=== PATIENT | female | born 1940 ===

== ENCOUNTER 2019-06-05 13:33 | Emergency (ER) | payer OTHER ==
--- OUTSIDE RECORDS SUMMARY | 2019-06-05 13:36 | XMS REPORT ---
:1940 Author Organization eClinicalWorks Care Team Providers Name Role Phone URIAH SABRINAHENRIETTA Provider Role Unavailable Allergies, Adverse Reactions, Alerts Substance Reaction Event Type sulfa drugs Info Not Available Non Drug Allergy Sulfa Sulfa Non Drug Allergy Encounters Encounter Location Date abd pain [facility] January 20, 2014 Unknown [facility] February 17, 2014 diverticulitis [facility] March 02, 2016 Problems Problem Type Condition ICD-9 Code Onset Dates Condition Status Problem Hx of polyp V12.72 Active Problem ABDMNAL PAIN EPIGASTRIC 789.06 Active Problem Family Hx colon ca V16.0 Active Assessment Constipation K59.00 Active Problem GERD 530.81 Active Assessment Dysphagia R13.10 Active Medications Medication Code System Code Instructions Start Date End Date Status Dosage Perdiem MULTUM 90583 Active Unknown Overnight Effexor XR MULTUM 00033 75 mg orally once Active 1 cap(s) a day AZO Urinary MULTUM 943955 Active Unknown Pain Relief Laxative Unknown 0 Active Unknown Social History Social History Element Qualifiers Date Reported Illegal/Recreational Drugs no. March 02, 2016 Alcohol no. March 02, 2016 Smoking . Status Never Smoker March 02, 2016 Family history Qualifier Description Comment Date Reported Maternal Grand Mother Comment not available March 02, 2016 Paternal Grand Mother Comment not available March 02, 2016 Siblings Comment not available March 02, 2016 Maternal Grand Father Comment not available March 02, 2016 Children Comment not available March 02, 2016 Father bowel cancer March 02, 2016 Paternal Grand Father Comment not available March 02, 2016 Mother cervical cancer March 02, 2016 Other Family: Comment not available March 02, 2016 Vital Signs Date/Time: March 02, 2016 Blood Pressure Systolic 117 mm Hg Weight 165 lbs Blood Pressure Diastolic 85 mm Hg Summary Purpose eClinicalWorks Submission
--- OUTSIDE RECORDS SUMMARY | 2019-06-05 13:36 | XMS REPORT ---
:1940 Author Organization eClinicalWorks Care Team Providers Name Role Phone URIAHJACE Provider Role Unavailable Encounters Encounter Location Date Unknown [facility] March 17, 2016 Unknown [facility] March 21, 2016 Unknown [facility] March 21, 2016 abd pain [facility] January 20, 2014 Unknown [facility] February 17, 2014 diverticulitis [facility] March 02, 2016 Problems Problem Type Condition ICD-9 Code Onset Dates Condition Status Problem Hx of polyp V12.72 Active Problem ABDMNAL PAIN EPIGASTRIC 789.06 Active Problem Family Hx colon ca V16.0 Active Problem GERD 530.81 Active Social History Social History Element Qualifiers Date Reported Illegal/Recreational Drugs no. March 02, 2016 Alcohol no. March 02, 2016 Smoking . Status Never Smoker March 02, 2016 Summary Purpose eClinicalWorks Submission
--- OUTSIDE RECORDS SUMMARY | 2019-06-05 13:36 | XMS REPORT ---
:1940 Author Organization eClinicalWorks Care Team Providers Name Role Phone Nadia LOCKHART Provider Role Unavailable Allergies, Adverse Reactions, Alerts Substance Reaction Event Type sulfa drugs Info Not Available Non Drug Allergy Sulfa Sulfa Non Drug Allergy Encounters Encounter Location Date abd pain [facility] January 20, 2014 Unknown [facility] February 17, 2014 Problems Problem Type Condition ICD-9 Code Onset Dates Condition Status Assessment GERD 530.81 Active Problem Hx of polyp V12.72 Active Problem ABDMNAL PAIN EPIGASTRIC 789.06 Active Problem Family Hx colon ca V16.0 Active Assessment Hx of polyp V12.72 Active Assessment ABDMNAL PAIN EPIGASTRIC 789.06 Active Problem GERD 530.81 Active Assessment Family Hx colon ca V16.0 Active Medications Medication Code System Code Instructions Start Date End Date Status Dosage Trilyte MULTUM 25059 - orally every January 20, Active 240 mL minutes 2013 venlafaxine MULTUM 05373 75 mg orally 2 Active 1 tab(s) times a day Detrol LA MULTUM 59047 4 mg orally once a Active 1 cap(s) day omeprazole MULTUM 62162 40 mg orally once a February 17, Active 1 cap(s) day 2013 Social History Social History Element Qualifiers Date Reported Illegal/Recreational Drugs no. February 17, 2014 Alcohol no. February 17, 2014 Smoking . Status Never Smoker February 17, 2014 Family history Qualifier Description Comment Date Reported Mother cervical cancer February 17, 2014 Father bowel cancer February 17, 2014 Vital Signs Date/Time: February 17, 2014 Blood Pressure Systolic 109 mm Hg Weight 161 lbs Blood Pressure Diastolic 79 mm Hg Summary Purpose eClinicalWorks Submission
--- OUTSIDE RECORDS SUMMARY | 2019-06-05 13:36 | XMS REPORT ---
:1940 Author Organization eClinicalWorks Care Team Providers Name Role Phone JACE KRUSE Provider Role Unavailable Encounters Encounter Location Date Unknown [facility] March 17, 2016 abd pain [facility] January 20, 2014 Unknown [facility] February 17, 2014 diverticulitis [facility] March 02, 2016 Problems Problem Type Condition ICD-9 Code Onset Dates Condition Status Problem Hx of polyp V12.72 Active Problem ABDMNAL PAIN EPIGASTRIC 789.06 Active Problem Family Hx colon ca V16.0 Active Problem GERD 530.81 Active Medications Medication Code System Code Instructions Start Date End Date Status Dosage Amitiza MULTUM 12292 24 mcg orally 2 March 17, 2016 Active 1 cap(s) times a day Social History Social History Element Qualifiers Date Reported Illegal/Recreational Drugs no. March 02, 2016 Alcohol no. March 02, 2016 Smoking . Status Never Smoker March 02, 2016 Summary Purpose eClinicalWorks Submission
--- OUTSIDE RECORDS SUMMARY | 2019-06-05 13:36 | XMS REPORT ---
[...] Instructions Start Date End Date Status Dosage Linzess MULTUM 230443 145 mcg orally once March 21 1 cap(s) a day 2015 Social History Social History Element Qualifiers Date Reported Illegal/Recreational Drugs no. March 02, 2016 Alcohol no. March 02, 2016 Smoking . Status Never Smoker March 02, 2016 Summary Purpose eClinicalWorks Submission
--- OUTSIDE RECORDS SUMMARY | 2019-06-05 13:36 | XMS REPORT ---
:1940 Author Organization eClinicalWorks Care Team Providers Name Role Phone Nadia LOCKHART Provider Role Unavailable Allergies, Adverse Reactions, Alerts Substance Reaction Event Type sulfa drugs Info Not Available Non Drug Allergy Encounters Encounter Location Date abd pain [facility] January 20, 2014 Problems Problem Type Condition ICD-9 Code [...] Date End Date Status Dosage Trilyte MULTUM 69565 - orally every 15 January 20, Active 240 mL minutes 2013 Detrol LA MULTUM 49451 4 mg orally once a Active 1 cap(s) day venlafaxine MULTUM 89514 75 mg orally 2 Active 1 tab(s) times a day Social History Social History Element Qualifiers Date Reported Illegal/Recreational Drugs no. January 20, 2014 Alcohol no. January 20, 2014 Smoking . Status Never Smoker January 20, 2014 Family history Qualifier Description Comment Date Reported Mother cervical cancer January 20, 2014 Father bowel cancer January 20, 2014 Vital Signs Date/Time: January 20, 2014 Weight 164 lbs Summary Purpose eClinicalWorks Submission
--- OUTSIDE RECORDS SUMMARY | 2019-06-05 13:36 | XMS REPORT | Continuity of Care Document ---
:1940 Author Organization [employer] Care Team Providers Name Role Phone [employer] Unavailable Unavailable Problems Problem Status Onset Classification Date Comments Source Date Reported GERD Active Problem 03/22/2016 [facility] Hx of polyp Active Problem 03/22/2016 [facility] ABDMNAL PAIN Active Problem 03/22/2016 [facility] EPIGASTRIC [facility] Family Hx colon Active Problem 03/22/2016 [facility] Constipation Active Diagnosis 03/04/2016 [facility] Dysphagia Active Diagnosis 03/04/2016 [facility] Medications Medication Details Route Status Patient Ordering Order Source Instructions Provider Date Linzess 1 cap(s) orally Active 145 mcg orally [facility] once a day [facility]16 [facility] Amitiza 1 cap(s) orally Active 24 mcg orally 2 [facility] times a day [facility] omeprazole 1 cap(s) orally Active 40 mg orally [facility] once a day [facility]14 [facility] Trilyte 240 mL orally Active - orally every [facility] 15 minutes 014 [facility] Detrol LA 1 cap(s) orally Active 4 mg orally [facility] once a day [facility] venlafaxine 1 tab(s) orally Active 75 mg orally 2 [facility] times a day [facility] Perdiem Unknown NA Active [facility] Overnight [facility] Effexor XR 1 cap(s) orally Active 75 mg orally [facility] once a day [facility] AZO Urinary Unknown NA Active [facility] Pain Relief [facility] Laxative Unknown NA Active [facility] Allergies, Adverse Reactions, Alerts Substance Category Reaction Severity Reaction Status Date Comments Source type Reported sulfa drugs Adverse Info Not Adverse Active [facility] Reaction Available Reaction [facility] Sulfa Adverse Sulfa Adverse Active [facility] Reaction Reaction [facility] Immunizations No Data Provided for This Section Results No Data Provided for This Section Pathology Reports No Data Provided for This Section Diagnostic Reports No Data Provided for This Section Consultation Notes No Data Provided for This Section Discharge Summaries No Data Provided for This Section History and Physicals No Data Provided for This Section Vital Signs Vital Sign Value Date Comments Source Systolic (mm Hg) 117 03/02/2016 [facility] Weight 165 03/02/2016 [facility] Diastolic (mm Hg) 85 03/02/2016 [facility] Systolic (mm Hg) 109 02/17/2014 [facility] Weight 161 02/17/2014 [facility] Diastolic (mm Hg) 79 02/17/2014 [facility] Weight 164 01/20/2014 [facility] Encounters Location Location Encounter Encounter Reason Attending ADM DC Status Source Details Type Number For Provider Date Date Visit [facility] abd pain [id number] 01/20 01/20 [facility] [id number] [facility] [id number] [facility] abd pain [id number] 01/20 01/20 [facility] cac-4afd-a /[facility] [id number] [facility]d pain [id number] 01/20 01/20 [facility] ec6-47cd-9 /[facility] [id number] [facility]d pain [id number] 01/20 01/20 [facility] ff9-4378-9 /[facility] [id number] [facility]d pain [id number] 01/20 01/20 [facility] e12-42j4-y /[facility] [id number] [facility]d pain [id number] 01/20 01/20 [facility] [id number] /[facility] [id number] [facility] Unknown [id number] 02/17 02/17 [facility] [id number] /[facility] [id number] [facility] Unknown [id number] 02/17 02/17 [facility] [id number] /[facility] [id number] [facility] Unknown [id number] 02/17 02/17 [facility] [id number] /[facility] [id number] [facility] Unknown [id number] 02/17 02/17 [facility] [id number] /2013 [facility] [id number] [facility] Unknown [id number] 02/17 02/17 [facility] [id number] /[facility] [id number] [facility] diverticulit [id number] 03/02 03/02 [facility] is [id number] /2015 [facility] [id number] [facility] diverticulit [id number] 03/02 03/02 [facility] [id number] /2015 [facility] [id number] [facility] diverticulit [id number] 03/02 03/02 [facility] is [id number] /2015 [facility] [id number] [facility] diverticulit [id number] 03/02 03/02 [facility] [id number] /2015 [facility] [id number] [facility] Unknown [id number] 03/17 03/17 [facility] [id number] /2015 [facility] [id number] [facility] Unknown [id number] 03/17 03/17 [facility] [id number] /2015 [facility] [id number] [facility] Unknown [id number] 03/17 03/17 [facility] [id number] /2015 [facility] [id number] [facility] [id number] 03/21 03/21 [facility] [id number] /2015 [facility] [id number] [facility] Unknown [id number] 03/21 03/21 [facility] [id number] /2015 [facility] [id number] [facility] Unknown [id number] 03/21 03/21 [facility] [id number]-[id number] /2015 [facility] [id number] [facility] Unknown [id number] 03/21 03/21 [facility] [id number] /2015 [facility] [id number] Procedures No Data Provided for This Section Assessment and Plan No Data Provided for This Section Plan of Care No Data Provided for This Section Social History Social History Date Source Social History ElementQualifiersDate Reported 03/02/2016 [facility] Illegal/Recreational Drugs no. March 02, 2016 Alcohol no. March 02, 2016 Smoking . Status Never Smoker March 02, 2016 Family History Value Date Source QualifierDescriptionCommentDate Reported 03/04/2016 [facility] Maternal Grand Mother Comment not available March [...] Family: Comment not available March 02, 2016 QualifierDescriptionCommentDate Reported 02/22/2014 [facility] Mother cervical cancer February 17, 2014 Father bowel cancer February 17, 2014 QualifierDescriptionCommentDate Reported 01/22/2014 [facility] Mother cervical cancer January 20, 2014 Father bowel cancer January 20, 2014 Advance Directives No Data Provided for This Section Functional Status No Data Provided for This Section
[2019-06-05] MEDS ORDERED: FENTANYL CITR 100 MCG/2 ML ONE (15:00)
[2019-06-05] MEDS ORDERED: ONDANSETRON 4 MG/2 ML VIAL ONE (15:01)
[2019-06-05 15:21] LABS: Absolute Lymphocytes (CBC) 0.8 K/uL (0.7-4.9); Basophils % 0.6 % (0-1.3); Hematocrit 41.3 % (36.0-45.0); Lymphocytes % 8.9 % (15.3-44.8); MPV 8.4 fL (7.6-11.3); RBC Red Blood Cell Count 4.46 M/uL (3.86-4.86)
[2019-06-05 15:59] LABS: Blood Morphology Comment NOT SEEN (NOT SEEN); Platelet Estimate ADEQ; Urine White Blood Cell Casts OK
[2019-06-05 16:40] LABS: Albumin 3.8 g/dL (3.4-5.0); Bilirubin Direct 0.2 mg/dL (0-0.2); Bilirubin Total 0.8 mg/dL (0.2-1.0); Potassium 3.6 mmol/L (3.5-5.1)
--- NOTE | 2019-06-05 16:45 | RAD REPORT ---
EXAM DESCRIPTION: CT - Abdomen Pelvis Wo Contrast - 06/05/2019 4:19 pm CLINICAL HISTORY: Abdominal pain COMPARISON: None TECHNIQUE: Computed axial tomography of the abdomen and pelvis was obtained. IV and oral contrast we re not requested. All CT scans are performed using dose optimization technique as appropriate and may include automated exposure control or mA/KV adjustment according to patient size. FINDINGS: The evaluation of solid organs, vessels and bowel is limited secondary to the lack of con trast administration. The liver, spleen, pancreas, and adrenals appear grossly normal. . Cholecystectomy Bilateral renal cysts 4 centimeter area of narrowing involves distal descending colon/ proximal sigmoid colon. Diverticula are seen. Mild stranding within the adjacent. Right colon is distended measuring 9.6 centimeters. No free air IMPRESSION: 4 centimeter area of narrowing involving the left colon with mild stranding in the adjac ent fat and diverticula most likely representing mild diverticulitis. Neoplasm can have a similar justin earance and should be correlated with the recent endoscopy. Right: Distended measuring 9.6 centimeters
--- NOTE | 2019-06-05 17:35 | EDPHYS ---
Physician Documentation [facility] Name: Dalia Desir Age: 79 yrs Sex: Female : 1940 Arrival Date: 06/05/2019 Time: 13:39 Bed 13 Private MD: ED Physician Eliot Deras HPI: 06/05 16:24 This 79 yrs old Female presents to ER via EMS with complaints of Abdominal Pain. jr8 16:24 The patient presents with abdominal pain that is diffuse. Onset: The symptoms/episode jr8 began/occurred acutely, today. The symptoms do not radiate. Associated signs and symptoms: none. The symptoms are described as constant, dull. Modifying factors: The symptoms are alleviated by nothing, the symptoms are aggravated by nothing. Severity of pain: At its worst the pain was moderate in the emergency department the pain is unchanged. The patient has not experienced similar symptoms in the past. The patient has been recently seen by a physician:. Patient had colonoscopy today. Dr. Alejandro stated that she has a fibrosed lower colon secondary to diverticulosis/diverticulitis. Stated that he had concern for perforation and sent her to ED for further evaluation . Historical: - Allergies: 13:39 Codeine; rb1 13:39 Cipro; rb1 - Home Meds: 13:39 atorvastatin oral oral [Active]; Effexor XR Oral [Active]; Vitamin D3 oral oral rb1 [Active]; - PMHx: 13:39 Diverticulitis; rb1 - PSHx: 13:39 Hysterectomy; Cholecystectomy; Colon resection; rb1 - Immunization history:: Adult Immunizations up to date. - Social history:: Smoking status: Patient/guardian denies using tobacco. - Ebola Screening: : Patient negative for fever greater than or equal to 101.5 degrees Fahrenheit, and additional compatible Ebola Virus Disease symptoms. ROS: 16:24 Eyes: Negative for injury, pain, redness, and discharge, ENT: Negative for injury, jr8 pain, and discharge, Neck: Negative for injury, pain, and swelling, Cardiovascular: Negative for chest pain, palpitations, and edema, Respiratory: Negative for shortness of breath, cough, wheezing, and pleuritic chest pain, Back: Negative for injury and pain, MS/Extremity: Negative for injury and deformity, Skin: Negative for injury, rash, and discoloration, Neuro: Negative for headache, weakness, numbness, tingling, and seizure. 16:24 Abdomen/GI: Positive for abdominal pain, nausea and vomiting, abdominal distension, Negative for diarrhea, constipation, abdominal cramps, anorexia, dysphagia, hematemesis, black/tarry stool, rectal pain, rectal bleeding, bowel incontinence, flatulence. Exam: 16:24 Eyes: Pupils equal round and reactive to light, extra-ocular motions intact. Lids and jr8 lashes normal. Conjunctiva and sclera are non-icteric and not injected. Cornea within normal limits. Periorbital areas with no swelling, redness, or edema. ENT: Nares patent. No nasal discharge, no septal abnormalities noted. Tympanic membranes are normal and external auditory canals are clear. Oropharynx with no redness, swelling, or masses, exudates, or evidence of obstruction, uvula midline. Mucous membranes moist. Neck: Trachea midline, no thyromegaly or masses palpated, and no cervical lymphadenopathy. Supple, full range of motion without nuchal rigidity, or vertebral point tenderness. No Meningismus. Cardiovascular: Regular rate and rhythm with a normal S1 and S2. No gallops, murmurs, or rubs. Normal PMI, no JVD. No pulse deficits. Respiratory: Lungs have equal breath sounds bilaterally, clear to auscultation and percussion. No rales, rhonchi or wheezes noted. No increased work of breathing, no retractions or nasal flaring. Back: No spinal tenderness. No costovertebral tenderness. Full range of motion. Skin: Warm, dry with normal turgor. Normal color with no rashes, no lesions, and no evidence of cellulitis. MS/ Extremity: Pulses equal, no cyanosis. Neurovascular intact. Full, normal range of motion. Neuro: Awake and alert, GCS 15, oriented to person, place, time, and situation. Cranial nerves II-XII grossly intact. Motor strength 5/5 in all extremities. Sensory grossly intact. Cerebellar exam normal. Normal gait. 16:24 Abdomen/GI: Inspection: distension, Bowel sounds: active, Palpation: soft, in all quadrants, moderate abdominal tenderness, in the abdomen diffusely, mass, is not appreciated, rebound tenderness, is not appreciated, voluntary guarding, is not appreciated, involuntary guarding, is not appreciated, no appreciated organomegaly, Indicators: McBurney's point is not tender, Isabel's sign is negative, Rovsing's sign is negative, Liver: tenderness, is not appreciated. Vital Signs: 13:39 BP 148 / 80; Pulse 78; Resp 20; Temp 97.7(O); Pulse Ox 100% on R/A; Weight 70.31 kg rb1 (R); Height 5 ft. 5 in. (165.10 cm) (R); Pain 10/10; 14:30 BP 146 / 79; Pulse 77; Resp 19; Temp 98.1(O); Pulse Ox 99% on R/A; Pain 9/10; rb1 15:30 BP 159 / 81; Pulse 86; Resp 19; Temp 98.0(O); Pulse Ox 99% on R/A; Pain 6/10; rb1 16:30 BP 149 / 80; Pulse 89; Resp 22; Pulse Ox 99% on R/A; Pain 5/10; kj1 17:30 BP 152 / 66; Pulse 82; Resp 19; Pulse Ox 97% on R/A; Pain 3/10; kj1 18:30 BP 142 / 85; Pulse 95; Resp 14; Temp 98.7(O); Pulse Ox 97% on R/A; Pain 2/10; rb1 13:39 Body Mass Index 25.79 (70.31 kg, 165.10 cm) rb1 MDM: 14:19 Patient medically screened. jr8 17:07 Data reviewed: vital signs, nurses notes, lab test result(s), radiologic studies, CT jr8 scan. Data interpreted: Pulse oximetry: on room air is 99 %. Interpretation: normal. Counseling: I had a detailed discussion with the patient and/or guardian regarding: the historical points, exam findings, and any diagnostic results supporting the discharge/admit diagnosis, lab results, radiology results. ED course: Dr. Alejandro came to see patient in ED after CT was completed. Plan is to insert rectal tube to do decompression and then will send patient home on simethicone for further aid in gas relief . 06/05 14:28 Order name: Basic Metabolic Panel; Complete Time: 16:50 jr8 06/05 14:28 Order name: CBC with Diff; Complete Time: 16:23 jr8 06/05 14:28 Order name: Hepatic Function; Complete Time: 16:50 jr8 06/05 14:28 Order name: Lipase; Complete Time: 16:50 [facility] 06/05 15:24 Order name: CBC Smear Scan; Complete Time: 16:23 [facility] 06/05 14:28 Order name: IV Saline Lock; Complete Time: 15:44 [facility] 06/05 14:28 Order name: Labs collected and sent; Complete Time: 15:44 [facility] 06/05 14:56 Order name: XRAY Chest (1 view) [facility] 06/05 15:25 Order name: Misc. Order: recollect BMP please; Complete Time: 16:05 06/05 15:46 Order name: CT Abd/Pelvis - Without Contrast; Complete Time: 16:50 [facility] Administered Medications: 15:15 Drug: fentaNYL (PF) 50 mcg Route: IVP; Site: left antecubital; rb1 15:30 Follow up: Response: No adverse reaction; Pain is decreased rb1 15:15 Drug: Zofran 4 mg Route: IVP; Site: left antecubital; rb1 15:30 Follow up: Response: No adverse reaction; Nausea is decreased rb1 Disposition: 06/05/19 17:34 Discharged to Home. Impression: Diverticulitis of large intestine without perforation or abscess without bleeding, Gas pain. - Condition is Stable. - Discharge Instructions: Abdominal Pain, Adult, High-Fiber Diet, Diverticulitis. - Prescriptions for Flagyl 500 mg Oral Tablet - take 1 tablet by ORAL route every 6 hours for 10 days; 40 tablet. Augmentin 875- 125 mg Oral Tablet - take 1 tablet by ORAL route every 12 hours for 10 days; 20 tablet. - Medication Reconciliation Form, Thank You Letter, Antibiotic Education, Prescription Opioid Use form. - Follow up: Denzel Alejandro MD; When: 5 - 6 days; Reason: Recheck today's complaints, Continuance of care, Re-evaluation by your physician. - Problem is new. - Symptoms have improved. Addendum: 06/09/2019 08:42 Co-signature as Attending Physician, Eliot Deras MD I agree with the assessment and k dr plan of care. Signatures: Dispatcher [employer] [facility] Eliot Deras MD MD kdr Smirch, Shelby, RN RN Elia Villaseñor PA PA jr8 Yessenia Conde, RN RN rb1 Corrections: (The following items were deleted from the chart) 06/05 18:06 14:29 Creatinine for Radiology+C.LAB.BRZ ordered. [facility] EDMS 18:46 17:34 06/05/2019 17:34 Discharged to Home. Impression: Diverticulitis of large rb1 intestine without perforation or abscess without bleeding; Gas pain. Condition is Stable. Forms are Medication Reconciliation Form, Thank You Letter, Antibiotic Education, Prescription Opioid Use. Follow up: Denzel Alejandro; When: 5 - 6 days; Reason: Recheck today's complaints, Continuance of care, Re-evaluation by your physician. Problem is new. Symptoms have improved. jr8
--- NOTE | 2019-06-05 17:35 | ER ---
Nurse's Notes [facility] Name: Dalia Desir Age: 79 yrs Sex: Female : 1940 Arrival Date: 06/05/2019 Time: 13:39 Bed 13 Private MD: Diagnosis: Diverticulitis of large intestine without perforation or abscess without bleeding;Gas pain Presentation: 06/05 13:39 Presenting complaint: EMS states: Pt. had a colonoscopy done today and c/o abdominal rb1 pain 10/10 that radiates to the back. Pt. transported from the GI facility. 12-Lead SR, BP 140's-160's systolic. History of Diverticulitis. Allergy to Cipro and Codeine. GI facility administered Zofran 4 mg IM \T\ 1245 and Toradol 30 mg IM \T\ 1245. Transition of care: GI Facility. Onset of symptoms was June 05, 2019. Risk Assessment: Do you want to hurt yourself or someone else? Patient reports no desire to harm self or others. Initial Sepsis Screen: Does the patient meet any 2 criteria? No. Patient's initial sepsis screen is negative. Does the patient have a suspected source of infection? No. Patient's initial sepsis screen is negative. Care prior to arrival: Medication(s) given: zofran IM Toradol 30 mg IM. 13:39 Method Of Arrival: EMS: [facility] rb1 13:39 Acuity: ANGÉLICA 3 rb1 Triage Assessment: 13:39 General: Appears uncomfortable, Behavior is calm, cooperative. Pain: Complains of pain rb1 in abdomen Pain radiates to back Pain currently is 10 out of 10 on a pain scale. Quality of pain is described as crampy, Bloating. Neuro: Level of Consciousness is awake, alert, obeys commands, Oriented to person, place, time, situation. Cardiovascular: Capillary refill < 3 seconds is brisk in bilateral fingers. Respiratory: Airway is patent Respiratory effort is even, unlabored, Respiratory pattern is regular, symmetrical. GI: Abdomen is non-distended, Reports bloating, cramping. : No signs and/or symptoms were reported regarding the genitourinary system. Derm: Skin is pink, warm \T\ dry. Musculoskeletal: Range of motion: intact in all extremities. Historical: - Allergies: 13:39 Codeine; rb1 13:39 Cipro; rb1 - Home Meds: 13:39 atorvastatin oral oral [Active]; Effexor XR Oral [Active]; Vitamin D3 oral oral rb1 [Active]; - PMHx: 13:39 Diverticulitis; rb1 - PSHx: 13:39 Hysterectomy; Cholecystectomy; Colon resection; rb1 - Immunization history:: Adult Immunizations up to date. - Social history:: Smoking status: Patient/guardian denies using tobacco. - Ebola Screening: : Patient negative for fever greater than or equal to 101.5 degrees Fahrenheit, and additional compatible Ebola Virus Disease symptoms. Screenin:39 Abuse screen: Denies threats or abuse. Nutritional screening: No deficits noted. rb1 Tuberculosis screening: No symptoms or risk factors identified. Fall Risk None identified. Assessment: 13:39 General: See triage assessment. rb1 13:39 GI: Bowel sounds present X 4 quads. Abd is soft X 4 quads. rb1 14:30 Reassessment: Patient appears in no apparent distress at this time. Pt. is able to pass rb1 gas and reports that she is feeling some relief. 15:30 Reassessment: Patient appears in no apparent distress at this time. Patient and/or rb1 family updated on plan of care and expected duration. Pain level reassessed. Patient is alert, oriented x 3, equal unlabored respirations, skin warm/dry/pink. Patient states feeling better. 15:55 Reassessment: Pt. went to CT. rb1 16:30 Reassessment: Patient appears in no apparent distress at this time. No changes from rb1 previously documented assessment. 17:30 Reassessment: Patient appears in no apparent distress at this time. Patient and/or rb1 family updated on plan of care and expected duration. Pain level reassessed. Patient is alert, oriented x 3, equal unlabored respirations, skin warm/dry/pink. 17:53 Reassessment: Discharge pending to due rectal tube. Charleen gave verbal order to keep rb1 the tube in place until 1820. 18:20 Reassessment: Patient appears in no apparent distress at this time. Patient and/or rb1 family updated on plan of care and expected duration. Pain level reassessed. Patient is alert, oriented x 3, equal unlabored respirations, skin warm/dry/pink. Removed the rectal tube, pt. tolerated well. Patient states feeling better. Patient states symptoms have improved. Vital Signs: 13:39 BP 148 / 80; Pulse 78; Resp 20; Temp 97.7(O); Pulse Ox 100% on R/A; Weight 70.31 kg rb1 (R); Height 5 ft. 5 in. (165.10 cm) (R); Pain 10/10; 14:30 BP 146 / 79; Pulse 77; Resp 19; Temp 98.1(O); Pulse Ox 99% on R/A; Pain 9/10; rb1 15:30 BP 159 / 81; Pulse 86; Resp 19; Temp 98.0(O); Pulse Ox 99% on R/A; Pain 6/10; rb1 16:30 BP 149 / 80; Pulse 89; Resp 22; Pulse Ox 99% on R/A; Pain 5/10; kj1 17:30 BP 152 / 66; Pulse 82; Resp 19; Pulse Ox 97% on R/A; Pain 3/10; kj1 18:30 BP 142 / 85; Pulse 95; Resp 14; Temp 98.7(O); Pulse Ox 97% on R/A; Pain 2/10; rb1 13:39 Body Mass Index 25.79 (70.31 kg, 165.10 cm) rb1 ED Course: 13:39 Patient arrived in ED. rb1 13:39 Arm band placed on right wrist. rb1 13:39 Patient has correct armband on for positive identification. Placed in gown. Bed in low rb1 position. Call light in reach. Side rails up X2. monitoring specialist on. Pulse ox on. NIBP on. Warm blanket given. 13:44 Triage completed. rb1 14:19 Elia Villaseñor PA is PHCP. jr8 14:19 Eliot Deras MD is Attending Physician. jr8 14:58 Yessenia Conde, MERCEDES is Primary Nurse. rb1 15:15 Inserted saline lock: 22 gauge in left antecubital area, using aseptic technique. rb1 15:48 XRAY Chest (1 view) In Process Unspecified. EDMS 16:18 CT completed. Patient tolerated procedure well. Patient moved to CT via stretcher. nj Patient moved back from CT. 16:19 CT Abd/Pelvis - Without Contrast In Process Unspecified. EDMS 16:34 Basic Metabolic Panel Sent. kj1 17:34 Denzel Alejandro MD is Referral Physician. jr8 18:46 No provider procedures requiring assistance completed. IV discontinued, intact, rb1 bleeding controlled, No redness/swelling at site. Pressure dressing applied. Administered Medications: 15:15 Drug: fentaNYL (PF) 50 mcg Route: IVP; Site: left antecubital; rb1 15:30 Follow up: Response: No adverse reaction; Pain is decreased rb1 15:15 Drug: Zofran 4 mg Route: IVP; Site: left antecubital; rb1 15:30 Follow up: Response: No adverse reaction; Nausea is decreased rb1 Outcome: 17:34 Discharge ordered by . jr8 18:46 Patient left the ED. rb1 18:46 Discharged to home ambulatory, with family. rb1 18:46 Condition: stable 18:46 Discharge instructions given to patient, Instructed on discharge instructions, follow up and referral plans. medication usage, Demonstrated understanding of instructions, follow-up care, medications, Prescriptions given X 2. Signatures: Dispatcher [employer] EDMS Elia Villaseñor PA PA jr8 Yessenia Conde, MERCEDES RN rb1 Jos Mace Kandis kj1
--- NOTE | 2019-06-05 18:53 | RAD REPORT ---
EXAM DESCRIPTION: Dora Single View06/05/2019 3:47 pm CLINICAL HISTORY: Abdominal pain COMPARISON: none FINDINGS: The lungs appear clear of acute infiltrate. The heart is normal size IMPRESSION: No acute abnormalities displayed
== END 2019-06-05 18:46 | disposition home or self-care (01) ==
LOC: ER 13:33
DX: K57.32 Diverticulitis of large intestine without perforation or abscess without bleeding (principal); R14.1 Gas pain; Z88.1 Allergy status to other antibiotic agents; Z88.5 Allergy status to narcotic agent
CPT/HCPCS: 85025; 80048; 36415; 80076; 83690; 74176; 71045; 96375; 96374; 99285; J3010; J2405